=== PATIENT | male | born 2000 | race Caucasian/White ===

== ENCOUNTER 2019-07-12 11:59 | Emergency (ER) | payer SELFPAY ==
[~2019-07-12] VITALS: Ht 188 cm; Wt 69.4 kg
--- NOTE | 2019-07-12 12:19 | NUR ---
RECREATION ATTENDANT: PT CALLED FOR ROOM, "SHE'S IN THE BATHROOM"
--- NOTE | 2019-07-12 12:26 | NUR ---
METAL FRAMER: PT TO ROOM FROM LOBBY
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
--- NOTE | 2019-07-12 14:59 | NUR ---
PT RESTING ON GURNEY .FRIENDS BEDSIDE. NADN. NO NEEDS REQUESTED AT THIS TIME.
[2019-07-12 16:04] VITALS: BP 114/83
--- NOTE | 2019-07-12 16:07 | NUR ---
TO ROOM WITH DC PAPERWORK. PT HAS LEFT WITHOUT PAPERWORK. EXPLAINED INSTRUCTIONS EARLIER AND PT VERBALIZED UNDERSTANDING.
[2019-07-13] MEDS ORDERED: AMOX1TAB64 PO (14:57)
== END 2019-07-12 16:29 | disposition left against medical advice (07) ==
LOC: ED 14:19
DX: S02.642A Fracture of ramus of left mandible, initial encounter for closed fracture (principal); S02.609A Fracture of mandible, unspecified, initial encounter for closed fracture; R51 Headache; F17.200 Nicotine dependence, unspecified, uncomplicated; X58.XXXA Exposure to other specified factors, initial encounter; Y93.01 Activity, walking, marching and hiking; Y92.89 Other specified places as the place of occurrence of the external cause; Y99.8 Other external cause status
CPT/HCPCS: 70450; 70486; 99284

== ENCOUNTER 2019-07-13 05:08 | Day surgery (SDC) | payer MEDICAID, OTHER ==
[~2019-07-13] VITALS: Ht 188 cm; Wt 69.4 kg
[~2019-07-13 05:08] MED LIST: BALANCED SALT OPHTH IRRIG SOLN 18ML ONE; LIDOCAINE 1%-EPI 1:100K, 20ML ONE; OXYMETAZOLINE NASAL SPRAY 0.05%, 15ML ONE
[2019-07-13] MEDS ORDERED: MIDAZOLAM 1 MG/ML, 2ML ONE (06:24)
[2019-07-13] MEDS ORDERED: FENTANYL PF 250 MCG/5ML ONE ×2 (06:24→07:35)
[2019-07-13] MEDS ORDERED: ROCURONIUM 10MG/ML,5ML ONE ×2 (06:26→16:29)
[2019-07-13] MEDS ORDERED: OXYMETAZOLINE NASAL SPRAY 0.05%, 15ML ONE (06:53)
[2019-07-13] MEDS ORDERED: OXYcodone 5 MG/5 ML ORAL.SOL UDC PO PRN (07:00)
[2019-07-13] MEDS ORDERED: HYDROmorphone 2 MG/ML, 1ML IVPush PRN (07:00)
[2019-07-13] MEDS ORDERED: FENTANYL PF 100 MCG/2ML IV PRN (07:00)
[2019-07-13] MEDS ORDERED: HALOPERIDOL 5 MG/ML IV PRN (07:00)
[2019-07-13] MEDS ORDERED: PROMETHAZINE 25 MG/ML, 1ML IV PRN (07:00)
[2019-07-13] MEDS ORDERED: MEPERIDINE/PF 25MG/ML,1ML IVPush PRN (07:00)
[2019-07-13] MEDS ORDERED: MORPHINE SULFATE 4 MG/ML, 1ML IVPush PRN (07:00)
[2019-07-13] MEDS ORDERED: DEXAMETHASONE 4 MG/ML, 1ML ONE ×2 (07:16)
[2019-07-13] MEDS ORDERED: ONDANSETRON 2MG/ML, 2ML ONE (07:16)
[2019-07-13] MEDS ORDERED: LIDOCAINE 1%-EPI 1:100K, 20ML INFIL ONE (07:37)
[2019-07-13] MEDS ORDERED: OXYcodone 5 MG/5 ML ORAL.SOL UDC ONE (09:30)
[2019-07-13] MEDS ORDERED: PLEASE ENTER HEIGHT AND WEIGHT MC SCH (10:30)
[2019-07-13] MEDS ORDERED: ACETAMINOPHEN 500 MG TABLET PO PRN (11:00)
[2019-07-13] MEDS ORDERED: OXYcodone IR 5MG TABLET PO PRN (11:00)
[2019-07-13] MEDS ORDERED: AMOX1TAB64 PO (14:57)
[2019-07-13 15:30] VITALS: BP 135/93
[2019-07-13] MEDS ORDERED: NEOSTIGMINE 1 MG/ML, 10ML ONE (16:29)
[2019-07-13] MEDS ORDERED: PROPOFOL 10 MG/ML, 20ML ONE (16:29)
[2019-07-13] MEDS ORDERED: GLYCOPYRROLATE 0.2MG/1ML, 5ML ONE (16:29)
== END 2019-07-13 14:42 | disposition home or self-care (01) ==
LOC: OR 05:08 → 4NE 05:15 → OUT 14:42
PROVIDERS: ATTEND Otolaryngology Facial Plastic Surgery
DX: S02.66XA Fracture of symphysis of mandible, initial encounter for closed fracture (principal); S02.652A Fracture of angle of left mandible, initial encounter for closed fracture; X58.XXXA Exposure to other specified factors, initial encounter; Y93.89 Activity, other specified; Y92.89 Other specified places as the place of occurrence of the external cause; Y99.8 Other external cause status
CPT/HCPCS: 21470; C1713; J1100; J2250; J2405; J2704; J2710; J3010; J3490; G0378

== ENCOUNTER 2019-08-05 10:16 | Emergency (ER) | payer MEDICAID ==
[~2019-08-05 10:16] MED LIST changes: +AMOX1TAB64 PO; -BALANCED SALT OPHTH IRRIG SOLN 18ML ONE; -LIDOCAINE 1%-EPI 1:100K, 20ML ONE; -OXYMETAZOLINE NASAL SPRAY 0.05%, 15ML ONE
--- NOTE | 2019-08-05 10:28 | NUR ---
NA X1
--- NOTE | 2019-08-05 10:34 | NUR ---
NA X2
--- NOTE | 2019-08-05 11:02 | NUR ---
NA X3
== END 2019-08-05 11:08 | disposition left against medical advice (07) ==
LOC: ED 11:02
DX: R68.84 Jaw pain (principal); Z53.21 Procedure and treatment not carried out due to patient leaving prior to being seen by health care provider

== ENCOUNTER 2019-08-05 22:33 | Emergency (ER) | payer MEDICAID ==
[~2019-08-05] VITALS: Ht 188 cm; Wt 69.1 kg
[2019-08-05] MEDS ORDERED: SODIUM CHLORIDE FLUSH 10ML SYR IVF ONE (23:00)
[2019-08-05 23:51] LABS: BASOPHILS # (AUTO) 0.04 x10^3/uL (0-0.1); BASOPHILS % (AUTO) 0 % (0-1); EOSINOPHILS # (AUTO) 0.15 x10^3/uL (0-0.4); EOSINOPHILS % (AUTO) 1 % (1-7); LYMPHOCYTES # (AUTO) 3.61 x10^3/uL (1-3.4); LYMPHOCYTES % (AUTO) 30 % (22-44); MD NO; MEAN CORPUSCULAR HEMOGLOBIN 29.8 pg (27.5-34.5); MEAN CORPUSCULAR HGB CONC 33.4 g/dL (33.2-36.2); MEAN CORPUSCULAR VOLUME 89.2 fL (81-97); MEAN PLATELET VOLUME 7.6 fL (7.4-10.4); MONOCYTES # (AUTO) 0.93 x10^3/uL (0.2-0.8); MONOCYTES % (AUTO) 8 % (2-9); NEUTROPHILS # (AUTO) 7.29 x10^3/uL (1.8-6.8); NEUTROPHILS % (AUTO) 61 % (42-75); PLATELET COUNT 462 x10^3/uL (130-400); RED BLOOD COUNT 5.08 x10^6/uL (4.38-5.82); RED CELL DISTRIBUTION WIDTH 13.4 % (9.4-14.8)
[2019-08-05 23:58] LABS: ALBUMIN 3.9 g/dL (3.4-5.0); ANION GAP 4 mmol/L (5-15); CALCIUM 8.9 mg/dL (8.5-10.1); CHLORIDE 109 mmol/L (98-107)
[2019-08-06 00:03] LABS: ALANINE AMINOTRANSFERASE 28 U/L (12-78); ALKALINE PHOSPHATASE 109 U/L (45-117); BILIRUBIN,TOTAL 0.9 mg/dL (0.2-1.0); CREATININE 1.07 mg/dL (0.7-1.3); TOTAL PROTEIN 7.5 g/dL (6.4-8.2)
--- NOTE | 2019-08-06 00:47 | NUR ---
pt to room from lobby
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
--- NOTE | 2019-08-06 00:56 | NUR ---
DR. CALDERON IN TO EVAL PT. AND FURTHER DISCUSSED POC. IV ESTABLISHED. PT. REPORTS SURGERY WAS ON 07/13/19.
[2019-08-06 01:06] VITALS: BP 127/67
--- NOTE | 2019-08-06 01:06 | NUR ---
REPORT TO ALEXANDRO HOUSER TO ASSUME FULL CARE OF PT.
--- NOTE | 2019-08-06 02:56 | NUR ---
RN to bedside, patient relayed history of broken jaw. Understands need to wait for radiologist reading on ct scan. Patient verbalized understanding. Patient alert, oriented.
[2019-08-06] MEDS ORDERED: CLINDAMYCIN 300 MG CAPSULE PO ONE (03:00)
[2019-08-06] MEDS ORDERED: IBUPROFEN 600 MG TABLET PO ONE (03:00)
[2019-08-06] MEDS ORDERED: OMNIPAQUE 350 MG/ML, 100ML BOTTLE ONE (04:47)
== END 2019-08-06 03:12 | disposition home or self-care (01) ==
LOC: ED 08-06 03:11
DX: K08.89 Other specified disorders of teeth and supporting structures (principal); F17.210 Nicotine dependence, cigarettes, uncomplicated
CPT/HCPCS: 36415; 70487; 80053; 85025; 99284; Q9967

== ENCOUNTER 2019-10-30 06:49 | Emergency (ER) | payer MEDICAID ==
[~2019-10-30] VITALS: Ht 188 cm; Wt 70.7 kg
--- NOTE | 2019-10-30 07:55 | NUR ---
pt ambulated to room with a steady gait. pt changed into a hospital gown. Provider at bedside. Girlfriend at bedside.
[2019-10-30] MEDS ORDERED: AMPICILLIN/SULBACTAM 3 GM in SODIUM CHLORIDE 0.9% 100 ML IV ONE (08:00)
[2019-10-30] MEDS ORDERED: KETOROLAC 30 MG/1 ML IVPush ONE (08:00)
--- NOTE | 2019-10-30 08:11 | NUR ---
IV to left FA started. Lab at bedside. Updated on current POC. pt and pts gf verbalized understanding.
[2019-10-30] MEDS ORDERED: KETOROLAC 30 MG/1 ML ONE (08:12)
[2019-10-30 08:18] LABS: BASOPHILS # (AUTO) 0.05 x10^3/uL (0-0.1); BASOPHILS % (AUTO) 0 % (0-1); EOSINOPHILS # (AUTO) 0.05 x10^3/uL (0-0.4); EOSINOPHILS % (AUTO) 0 % (1-7); LYMPHOCYTES # (AUTO) 2.62 x10^3/uL (1-3.4); LYMPHOCYTES % (AUTO) 18 % (22-44); MD NO; MEAN CORPUSCULAR HEMOGLOBIN 30.3 pg (27.5-34.5); MEAN CORPUSCULAR HGB CONC 33.7 g/dL (33.2-36.2); MEAN CORPUSCULAR VOLUME 89.9 fL (81-97); MEAN PLATELET VOLUME 7.5 fL (7.4-10.4); MONOCYTES # (AUTO) 0.92 x10^3/uL (0.2-0.8); MONOCYTES % (AUTO) 6 % (2-9); NEUTROPHILS # (AUTO) 10.74 x10^3/uL (1.8-6.8); NEUTROPHILS % (AUTO) 75 % (42-75); PLATELET COUNT 377 x10^3/uL (130-400); RED BLOOD COUNT 4.96 x10^6/uL (4.38-5.82); RED CELL DISTRIBUTION WIDTH 13.7 % (9.4-14.8)
--- NOTE | 2019-10-30 08:23 | NUR ---
Medicated per emar
[2019-10-30 08:29] LABS: ALBUMIN 3.7 g/dL (3.4-5.0); ANION GAP 6 mmol/L (5-15); CHLORIDE 107 mmol/L (98-107); CREATININE 1.13 mg/dL (0.7-1.3)
--- NOTE | 2019-10-30 08:43 | NUR ---
pt out of room to CT
--- NOTE | 2019-10-30 08:43 | NUR ---
pt's gf and mom at bedside. Discussed currently hospital policy of only one vistior in the ER at a time. Visitors verbalized understanding. pts gf left room, mom now at bedside.
[2019-10-30] MEDS ORDERED: SODIUM CHLORIDE 0.9% 1,000ML IVBOLUS ONE (09:00)
[2019-10-30] MEDS ORDERED: OMNIPAQUE 350 MG/ML, 75ML BOTTLE ONE (09:02)
--- NOTE | 2019-10-30 09:27 | NUR ---
pt appears to be resting comfortably in [facility] at this time.
[2019-10-30] MEDS ORDERED: HYDROmorphone 1 MG/ML, 1ML INJ ONE (09:58)
[2019-10-30] MEDS ORDERED: HYDROmorphone 1 MG/ML, 1ML INJ IV ONE (10:00)
[2019-10-30] MEDS ORDERED: HYDROmorphone 2 MG/ML, 1ML IM ONE (10:00)
[2019-10-30] MEDS ORDERED: LIDOCAINE 1%, 10ML INFIL ONE (10:00)
[2019-10-30] MEDS ORDERED: LIDOCAINE-MPF 1%, 5ML ONE (10:04)
--- NOTE | 2019-10-30 10:05 | NUR ---
Provider at bedside to complete I&D. pt per medicated per orders. Lidocaine handed to provider
[2019-10-30 10:57] VITALS: BP 107/66
--- NOTE | 2019-10-30 10:57 | NUR ---
Patient given discharge instructions and they have confirmed that they understand the instructions. Patient ambulatory with steady gait. pt stated he will fill perscripitions and take as ordered.
== END 2019-10-30 11:00 | disposition home or self-care (01) ==
LOC: ED 07:37
DX: K04.7 Periapical abscess without sinus (principal)
CPT/HCPCS: 36415; 41800; 70487; 80048; 82040; 83605; 85025; 87040; 96365; 96375; 99284; J0295; J1170; J1885; J7030; Q9967

== ENCOUNTER 2019-11-01 15:00 | Emergency (ER) | payer MEDICAID ==
[~2019-11-01] VITALS: Ht 188 cm; Wt 68.9 kg
[2019-11-01 15:04] VITALS: BP 105/73
[2019-11-01] MEDS ORDERED: NEOSPORIN OINT. PKT 1 PACKET ONE (15:43)
--- NOTE | 2019-11-01 16:11 | NUR ---
Patient given discharge instructions and they have confirmed that they understand the instructions. Patient ambulatory with steady gait.
== END 2019-11-01 16:50 | disposition home or self-care (01) ==
LOC: ED 15:25
DX: Z48.01 Encounter for change or removal of surgical wound dressing (principal)
CPT/HCPCS: 99281

== ENCOUNTER 2019-12-02 05:47 | Inpatient (IN) | payer MEDICAID ==
[~2019-12-02] VITALS: Ht 188 cm; Wt 71.9 kg
[2019-12-02] MEDS ORDERED: SODIUM CHLORIDE FLUSH 10ML SYR IVF ONE (06:30)
[2019-12-02 06:44] LABS: BASOPHILS # (AUTO) 0.07 x10^3/uL (0-0.1); BASOPHILS % (AUTO) 1 % (0-1); EOSINOPHILS # (AUTO) 0.19 x10^3/uL (0-0.4); EOSINOPHILS % (AUTO) 2 % (1-7); LYMPHOCYTES # (AUTO) 3.39 x10^3/uL (1-3.4); LYMPHOCYTES % (AUTO) 33 % (22-44); MD NO; MEAN CORPUSCULAR HGB CONC 33.6 g/dL (33.2-36.2); MEAN CORPUSCULAR VOLUME 89.2 fL (81-97); MEAN PLATELET VOLUME 7.4 fL (7.4-10.4); MONOCYTES % (AUTO) 6 % (2-9); NEUTROPHILS # (AUTO) 6.09 x10^3/uL (1.8-6.8); NEUTROPHILS % (AUTO) 59 % (42-75); PLATELET COUNT 386 x10^3/uL (130-400); RED BLOOD COUNT 5.43 x10^6/uL (4.38-5.82); RED CELL DISTRIBUTION WIDTH 13.6 % (9.4-14.8)
[2019-12-02 06:52] LABS: ANION GAP 7 mmol/L (5-15); CALCIUM 8.8 mg/dL (8.5-10.1); CHLORIDE 112 mmol/L (98-107); CREATININE 1.09 mg/dL (0.7-1.3)
--- NOTE | 2019-12-02 06:59 | NUR ---
report received from allison welch.
[2019-12-02] MEDS ORDERED: OMNIPAQUE 350 MG/ML, 100ML BOTTLE ONE (07:01)
[2019-12-02] MEDS ORDERED: LIDOCAINE-MPF 1%, 2ML ONE (07:54)
[2019-12-02] MEDS ORDERED: LIDOCAINE-MPF 1%, 5ML INFIL ONE (08:00)
--- NOTE | 2019-12-02 08:19 | NUR ---
pt resting in [facility]. pt's aox4. resps even and unlabored. bp/spo2 monitors in place. call light within reach.
--- NOTE | 2019-12-02 09:10 | NUR ---
REPORT GIVEN TO PRE MANAGER OF CHANGE. ALL QUESTIONS ANSWERED.
[2019-12-02 09:38] VITALS: BP 109/73
[2019-12-02 09:41] VITALS: BP 109/73
[2019-12-02] MEDS ORDERED: LACTATED RINGERS 1,000 ML IV SCH (09:53)
[2019-12-02] MEDS ORDERED: CHLORHEXIDINE 15 ML UDC ONE (10:13)
[2019-12-02 13:31] LABS: BASOPHILS # (AUTO) 0.04 x10^3/uL (0-0.1); BASOPHILS % (AUTO) 0 % (0-1); EOSINOPHILS # (AUTO) 0.17 x10^3/uL (0-0.4); EOSINOPHILS % (AUTO) 2 % (1-7); LYMPHOCYTES # (AUTO) 2.93 x10^3/uL (1-3.4); LYMPHOCYTES % (AUTO) 26 % (22-44); MD NO; MEAN CORPUSCULAR HEMOGLOBIN 30.1 pg (27.5-34.5); MEAN CORPUSCULAR HGB CONC 33.4 g/dL (33.2-36.2); MEAN CORPUSCULAR VOLUME 89.9 fL (81-97); MEAN PLATELET VOLUME 6.9 fL (7.4-10.4); MONOCYTES # (AUTO) 0.61 x10^3/uL (0.2-0.8); MONOCYTES % (AUTO) 5 % (2-9); NEUTROPHILS # (AUTO) 7.52 x10^3/uL (1.8-6.8); NEUTROPHILS % (AUTO) 67 % (42-75); PLATELET COUNT 392 x10^3/uL (130-400); RED BLOOD COUNT 5.29 x10^6/uL (4.38-5.82); RED CELL DISTRIBUTION WIDTH 13.4 % (9.4-14.8)
[2019-12-02 13:41] LABS: ANION GAP 6 mmol/L (5-15); CALCIUM 9.1 mg/dL (8.5-10.1); CHLORIDE 112 mmol/L (98-107); CREATININE 0.95 mg/dL (0.7-1.3)
[2019-12-02] MEDS ORDERED: LIDOCAINE 1%-EPI 1:100K, 20ML ONE (13:59)
[2019-12-02] MEDS ORDERED: BALANCED SALT OPHTH IRRIG SOLN 18ML ONE (13:59)
[2019-12-02] MEDS ORDERED: OXYMETAZOLINE NASAL SPRAY 0.05%, 15ML ONE (13:59)
[2019-12-02] MEDS ORDERED: BACITRACIN 50,000 UNIT ONE (14:17)
[2019-12-02] MEDS ORDERED: MIDAZOLAM 1 MG/ML, 2ML ONE (14:20)
[2019-12-02] MEDS ORDERED: FENTANYL PF 250 MCG/5ML ONE (14:20)
[2019-12-02] MEDS ORDERED: SUCCINYLCHOLINE 20 MG/ML, 10ML ONE (14:30)
[2019-12-02] MEDS ORDERED: ONDANSETRON 2MG/ML, 2ML ONE (14:30)
[2019-12-02] MEDS ORDERED: LIDOCAINE-MPF 2% ,5ML ONE (14:30)
[2019-12-02] MEDS ORDERED: PROPOFOL 10 MG/ML, 50ML ONE (14:30)
[2019-12-02] MEDS ORDERED: SUGAMMADEX 200 MG/2 ML IVPush ONE (14:30)
[2019-12-02] MEDS ORDERED: ROCURONIUM 10MG/ML,5ML ONE (14:30)
[2019-12-02] MEDS ORDERED: HYDROmorphone 2 MG/ML, 1ML IVPush PRN (15:00)
[2019-12-02] MEDS ORDERED: ACETAMINOPHEN 325 MG TABLET PO PRN (15:00)
[2019-12-02] MEDS ORDERED: OXYcodone 5 MG/5 ML ORAL.SOL UDC PO PRN (15:00)
[2019-12-02] MEDS ORDERED: AMPICILLIN/SULBACTAM 1,500 MG in SODIUM CHLORIDE 0.9% 50 ML IV ONE (15:00)
[2019-12-02] MEDS ORDERED: ONDANSETRON 2MG/ML, 2ML IV PRN (15:00)
[2019-12-02] MEDS ORDERED: LORazepam 2 MG/ML, 1ML IVPush PRN (15:00)
[2019-12-02] MEDS ORDERED: KETOROLAC 30 MG/1 ML IV PRN (15:00)
[2019-12-02] MEDS ORDERED: FENTANYL PF 100 MCG/2ML IV PRN (15:00)
[2019-12-02] MEDS ORDERED: MEPERIDINE/PF 25MG/ML,1ML ONE ×2 (15:45→16:01)
[2019-12-02] MEDS: MEPERIDINE/PF 25MG/ML,1ML IVPush PRN ×2 (15:47→16:08)
[2019-12-02] MEDS ORDERED: OXYcodone 5 MG/5 ML ORAL.SOL UDC ONE (16:01)
[2019-12-02] MEDS: SODIUM CHLORIDE 0.9% 1,000 ML IV SCH (17:44)
[2019-12-02] MEDS: ACETAMINOPHEN 500 MG TABLET PO PRN ×2 (19:05→22:57)
[2019-12-02] MEDS: OXYcodone IR 5MG TABLET PO PRN ×2 (19:05→22:57)
[2019-12-02 19:33] VITALS: BP 138/90
[2019-12-02] MEDS: AMPICILLIN/SULBACTAM 3 GM in SODIUM CHLORIDE 0.9% 100 ML IV SCH (20:59)
[2019-12-02 23:08] VITALS: BP 110/69
[2019-12-03] MEDS: AMPICILLIN/SULBACTAM 3 GM in SODIUM CHLORIDE 0.9% 100 ML IV SCH ×2 (03:03→08:41)
[2019-12-03] MEDS: ACETAMINOPHEN 500 MG TABLET PO PRN (03:03)
[2019-12-03] MEDS: OXYcodone IR 5MG TABLET PO PRN (03:03)
[2019-12-03] MEDS: SODIUM CHLORIDE 0.9% 1,000 ML IV SCH (03:06)
[2019-12-03 03:23] VITALS: BP 111/60
[2019-12-03 05:16] LABS: BASOPHILS # (AUTO) 0.06 x10^3/uL (0-0.1); BASOPHILS % (AUTO) 1 % (0-1); EOSINOPHILS # (AUTO) 0.34 x10^3/uL (0-0.4); EOSINOPHILS % (AUTO) 4 % (1-7); LYMPHOCYTES % (AUTO) 36 % (22-44); MD NO; MEAN CORPUSCULAR HEMOGLOBIN 30.4 pg (27.5-34.5); MEAN CORPUSCULAR HGB CONC 34.1 g/dL (33.2-36.2); MEAN PLATELET VOLUME 7.5 fL (7.4-10.4); MONOCYTES # (AUTO) 0.85 x10^3/uL (0.2-0.8); MONOCYTES % (AUTO) 9 % (2-9); NEUTROPHILS # (AUTO) 5.08 x10^3/uL (1.8-6.8); NEUTROPHILS % (AUTO) 52 % (42-75); PLATELET COUNT 331 x10^3/uL (130-400); RED BLOOD COUNT 4.73 x10^6/uL (4.38-5.82); RED CELL DISTRIBUTION WIDTH 13.5 % (9.4-14.8)
[2019-12-03 05:23] LABS: ANION GAP 5 mmol/L (5-15); CALCIUM 8.3 mg/dL (8.5-10.1); CHLORIDE 107 mmol/L (98-107); CREATININE 0.89 mg/dL (0.7-1.3)
[2019-12-03 07:30] VITALS: BP 97/61
[2019-12-03] MEDS ORDERED: AMOX1TAB64 PO (08:53)
[2019-12-03 12:21] VITALS: BP 111/73
== END 2019-12-03 13:00 | disposition home or self-care (01) | DRG 857 ==
LOC: ED 06:22 → EDIP 08:00 → 4NE 17:07
PROVIDERS: ADMIT Internal Medicine; ATTEND Internal Medicine
PROC: 0W950ZZ Drainage of Lower Jaw, Open Approach (ICD-10-PCS; 2019-12-02)
PROC: 0NPW04Z Removal of Internal Fixation Device from Facial Bone, Open Approach (ICD-10-PCS; principal; 2019-12-02 14:00)
DX: T81.41XA Infection following a procedure, superficial incisional surgical site, initial encounter (principal); L02.01 Cutaneous abscess of face; Y83.8 Other surgical procedures as the cause of abnormal reaction of the patient, or of later complication, without mention of misadventure at the time of the procedure; Y92.89 Other specified places as the place of occurrence of the external cause; M27.2 Inflammatory conditions of jaws; D72.829 Elevated white blood cell count, unspecified; F12.90 Cannabis use, unspecified, uncomplicated; F15.90 Other stimulant use, unspecified, uncomplicated; J32.0 Chronic maxillary sinusitis
CPT/HCPCS: 36415; J3490; 70487; 71045; 80048; 82040; 85025; 87015; 87040; 87070; 87075; 87076; 87077; 87102; 87116; 87205; 87206; G0378; J0295; J2250; J2405; J2704; J3010; Q9967; J0330; J2175; J7030

== ENCOUNTER 2021-04-14 18:01 | Emergency (ER) | payer MEDICAID ==
[~2021-04-14] VITALS: Ht 188 cm; Wt 80.0 kg
[2021-04-14 18:57] VITALS: BP 135/78
[2021-04-14] MEDS ORDERED: CEFTRIAXONE 1,000 MG IM ONE (21:00)
[2021-04-14] MEDS ORDERED: CEFTRIAXONE 1,000 MG ONE (21:05)
== END 2021-04-14 21:29 | disposition home or self-care (01) ==
LOC: ED 20:34
DX: N45.1 Epididymitis (principal)
CPT/HCPCS: 76870; 96372; 99284; J0696